=== PATIENT | male | born 1960 | race Caucasian/White ===

== ENCOUNTER 2019-05-19 06:45 | Day surgery (SDC) | payer BC ==
[2019-05-19] MEDS ORDERED: Lactated Ringers 1,000 ML IV SCH (07:00)
[2019-05-19] MEDS ORDERED: Midazolam 1 MG/ML 2 ML SDV ONE (07:28)
[2019-05-19] MEDS ORDERED: fentaNYL 100 MCG/2 ML SDV ONE (07:28)
[2019-05-19] MEDS ORDERED: Propofol 200 MG/20 ML SDV ONE (07:28)
[2019-05-19 09:54] VITALS: BP 111/66; PULSE 54
--- NOTE | 2019-05-19 11:31 | OR ---
DATE OF PROCEDURE: 05/19/2019 SURGEON: Wero Ma MD PREOPERATIVE DIAGNOSIS: Strong family history of colon cancer. Mother at age 52. POSTOPERATIVE DIAGNOSES: Unremarkable colonoscopy, strong family history of colon cancer, mother at age 52. PROCEDURE: Colonoscopy to the cecum. ANESTHESIA: IV anesthesia with monitored anesthesia care. INDICATION: This 59-year-old white male is here for a colonoscopy because of a strong family history of colon cancer. His mother of colon cancer at age 52. He says his last colonoscopic exam was done about 4-1/2 years ago. I counseled him for the procedure including risks and alternatives, and he gave his informed consent to proceed. DESCRIPTION OF PROCEDURE: The patient was placed in the left lateral decubitus position. IV anesthesia was administered by the Anesthesia Service. Time-out was held. A rectal exam was performed, which was unremarkable. The flexible video Olympus colonoscope was introduced through his anus, up his rectum, and out his colon all way to the cecum. Once the cecum was reached, the scope was slowly withdrawn examining the mucosa throughout. No mucosal abnormalities were noted. The scope was retroflexed in the rectum with the distal rectum appearing unremarkable. The scope was straightened and removed. He tolerated the procedure well. Wero Ma MD /[id number]
== END 2019-05-19 10:00 | disposition home or self-care (01) ==
LOC: JP.SDS 06:45
PROVIDERS: ATTEND Surgery
DX: Z12.11 Encounter for screening for malignant neoplasm of colon (principal); I10 Essential (primary) hypertension; E78.5 Hyperlipidemia, unspecified; Z80.0 Family history of malignant neoplasm of digestive organs
CPT/HCPCS: J2250; J2704; J3010; J7120

== ENCOUNTER 2021-04-28 08:29 | Day surgery (SDC) | payer BC ==
[2021-04-28] MEDS ORDERED: Sodium Chloride 0.9% 1,000 ML IV SCH (09:00)
[2021-04-28] MEDS ORDERED: Midazolam 1 MG/ML 2 ML SDV ONE (09:53)
[2021-04-28] MEDS ORDERED: Propofol 200 MG/20 ML SDV ONE (09:53)
[2021-04-28] MEDS ORDERED: fentaNYL 100 MCG/2 ML SDV ONE (09:53)
--- NOTE | 2021-04-28 11:29 | OR ---
DATE OF PROCEDURE: 04/28/2021 SURGEON: Derian Ramirez MD PROCEDURE: Colonoscopy. PREOPERATIVE DIAGNOSIS: Family history of colorectal cancer. POSTOPERATIVE DIAGNOSIS: Family history of colorectal cancer. RISKS: Risks, benefits, alternatives, and limitations including, but not limited to infection, bleeding, perforation, false positives and false negatives were explained to the patient who wished to proceed. PROCEDURE IN DETAIL: The patient was placed in left lateral decubitus position. Digital rectal exam was performed without abnormality. Scope was introduced and advanced atraumatically to the ileocecal valve. Scope was brought back to the ascending, transverse, descending colon, and retroflexed. No evidence of old or new blood. No masses. No polyps. No diverticulosis. No abnormalities on retroflexion. Greater than 8 minutes was spent removing the scope. Prep was acceptable, approximately 90% of the luminal surface could be seen. The patient tolerated the procedure well. Derian Ramirez MD /[id number]
[2021-04-28 11:40] VITALS: BP 110/64; PULSE 60
== END 2021-04-28 11:53 | disposition home or self-care (01) ==
LOC: JP.SDS 08:29
PROVIDERS: ATTEND Surgery
DX: Z12.11 Encounter for screening for malignant neoplasm of colon (principal); I10 Essential (primary) hypertension; Z80.0 Family history of malignant neoplasm of digestive organs
CPT/HCPCS: 45378; J2250; J2704; J3010; J7030